=== PATIENT | female | born 1970 | race Caucasian/White ===

== ENCOUNTER 2020-02-20 10:16 | Emergency (ER) | payer MEDICARE, SELFPAY ==
[2020-02-20 10:31] VITALS: BP 120/90; PULSE 90; RESP 18; TEMP 37; O2SAT 94; BMI 43.7
--- NOTE | 2020-02-20 10:32 | ED_ITS ---
HPI - General Adult General: Chief complaint: Chest Pain Stated complaint: PAIN L BREAST Time Seen by Provider: 02/20/20 10:31 Source: patient Mode of arrival: ambulatory Limitations: no limitations History of Present Illness: HPI narrative: Patient comes in today for complaints of chest discomfort on the left side. Patient states that last night she had sharp pain that came and went through from the left side of her chest into her back. Patient does have a history of a thoracic spine injury from several years ago that occasionally causes some pain for her. Patient did not think more of the pain until this morning when she had another onset of pain when she coughed. Patient states that when she makes a sudden movement like with coughing or turning a certain way she has pain. Patient appears well. Patient does have a history of cardiac arrhythmia. Patient takes sotalol, Xarelto, and isosorbide. Associated symptoms: Reports chest pain Review of Systems General: Reports: 10 or more systems reviewed and unremarkable except in HPI and below Card: Reports: chest pain [facility] ED PFSH: Social History Smoking and tobacco status: never smoked Physical Exam Const: COMMON NORMALS: no acute distress and patient oriented x3 GENERAL APPEARANCE: cooperative HENMT: COMMON NORMALS: normocephalic and Normal external nose present HEAD & SCALP: normal to inspection and normocephalic NOSE: Normal external nose present MOUTH: Normal oral and palatal mucosa present Eye: GENERAL EYE: appearance normal, both eyes and all related structures Neck/C-Spine: COMMON NORMALS: full ROM Lymph: LYMPHATIC: no lymphadenopathy noted Chest: COMMONS NORMALS: normal inspection of the chest CHEST: Yes tenderness (Left anterior chest tenderness) Resp: COMMON NORMALS: normal respiratory effort EFFORT & INSPECTION: Yes able to speak in complete sentences Cardio: COMMON NORMALS: regular rate and regular rhythm RATE: regular rate RHYTHM: regular rhythm GI: COMMON NORMALS: non-tender : COMMON NORMALS: Yes no CVA tenderness BLADDER/KIDNEY EXAM: Yes no CVA tenderness Back/Pelvis: COMMON NORMALS: no CVA tenderness and thoracic and lumbar spine normal to inspection Extremity: COMMON NORMALS: normal to inspection Neuro: COMMON NORMALS: patient oriented x3 and moves all extremities Psych: COMMON NORMALS: mental status grossly normal and cooperative Skin: COMMON NORMALS: no rashes or lesions noted GENERAL SKIN EXAM: no r ashes or lesions noted Course Vital Signs: Vital signs: Vital Signs Temperature 98.6 F 02/20/20 10:31 Pulse Rate 90 02/20/20 10:31 Respiratory Rate 18 02/20/20 10:31 Blood Pressure 120/90 02/20/20 10:31 Pulse Oximetry 94 02/20/20 10:31 MDM - General Adult MDM Narrative: Medical decision making narrative: Patient comes in today with complaints of left rib pain. Patient states that she had pain last night and then today. Patient states that she has been coughing more frequently both 2. On exam patient has chest wall tenderness on palpation to the left side. Respirations are even lungs are decreased in the left lower lung. Differential diagnosis includes but not limited to ACS, pneumonia, costochondritis, pleurisy. Laboratory values noted a negative troponin, white count 10,000, blood glucose at 192. Chest x-ray noted some atelectasis in the left lower lung field. Believe the patient probably developed some costochondritis and has not been deep breathing which is because the atelectasis. We will cover for infection with antibiotic due to concern for early pneumonia. No significant fevers noted though at this time. However patient does have some cerebral palsy that may predispose her for pneumonia development. Patient was given dexamethasone and Rocephin in the emergency department to help with inflammation and to treat for a mild developing pneumonia. Patient will be continued on azithromycin for 3 days. Reviewed this with patient and her mother who reported understanding of care plan and need for follow-up or return. Lab Data: Labs: Lab Results 02/20/20 02/20/20 02/20/20 Range/Units 10:51 10:51 10:51 WBC 10.5 H (4.0-10.0) 10^3/ uL RBC 4.36 (4.1-5.3) 10^6/u L Hgb 13.4 (11.5-15.3) g/dL Hct 40.8 (37.0-47.0) % MCV 93.6 (81-99) fL MCH 30.7 (28.0-34.0) pg MCHC 32.8 (30.0-36.0) g/dL RDW 12.3 (12.1-15.1) % Plt Count 266 (130-400) 10^3/c mm MPV 10.5 H (7.4-10.4) fL Neut % (Auto) 74.6 % Lymph % (Auto) 16.1 % Woods % (Auto) 6.7 % Eos % (Auto) 1.8 % Baso % (Auto) 0.4 % Neut # (Auto) 7.8 H (1.8-7.7) 10^3/u L Lymph # (Auto) 1.7 (0.8-4.8) 10^3/u L Woods # (Auto) 0.7 (0.2-0.9) 10^3/u L Eos # (Auto) 0.2 (0.0-0.8) 10^3/u L Baso # (Auto) 0.0 (0.0-0.1) 10^3/u L Nucleated RBC % (a uto) 0 % Nucleated RBCs # 0.0 /100WBC Sodium 138 (136-145) mmol/L Potassium 4.2 (3.5-5.1) mmol/L Chloride 107 (98-107) mmol/L Carbon Dioxide 19 L (22-29) mmol/L Anion Gap 16.2 (5-19) BUN 18 (6-20) mg/dL Creatinine 0.6 (0.5-0.9) mg/dL GFR Calculation 105.0 (90-130) mL/min Glucose 192 H (65-115) mg/dL Calculated Osmolal ity 288 (285-295) mOsm/k g Calcium 9.5 (8.5-10.5) mg/dL Total Bilirubin 0.2 (0.15-1.2) mg/dL AST 11 (0-32) U/L ALT 16 (0-33) U/L Alkaline Phosphata se 63 (35-105) IU/L Troponin T Gen 5 n g/L 6 (0-10) ng/mL Total Protein 6.9 (6.6-8.7) g/dL Albumin 4.5 (3.5-5.2) g/dL Globulin 2.4 (1.3-4.6) g/dL Urine Color (Yellow) Urine Appearance (CLEAR) Urine pH (5-7) Ur Specific Gravit y (1.005-1.030) Urine Protein (Negative) Urine Glucose (UA) (Normal) Urine Ketones (Negative) Urine Blood (Negative) Urine Nitrate (Negative) Urine Bilirubin (NEGATIVE) Urine Urobilinogen (Negative) mg/dL Ur Leukocyte Sara ase (Negative) Urine RBC (0-2) /hpf Urine WBC (0-5) /hpf Ur Squamous Epith Cells (0-5) Ur Renal Epithelia l Cell /hpf 02/20/20 Range/Units 10:58 WBC (4.0-10.0) 10^3/ uL RBC (4.1-5.3) 10^6/u L Hgb (11.5-15.3) g/dL Hct (37.0-47.0) % MCV (81-99) fL MCH (28.0-34.0) pg MCHC (30.0-36.0) g/dL RDW (12.1-15.1) % Plt Count (130-400) 10^3/c mm MPV (7.4-10.4) fL Neut % (Auto) % Lymph % (Auto) % Woods % (Auto) % Eos % (Auto) % Baso % (Auto) % Neut # (Auto) (1.8-7.7) 10^3/u L Lymph # (Auto) (0.8-4.8) 10^3/u L Woods # (Auto) (0.2-0.9) 10^3/u L Eos # (Auto) (0.0-0.8) 10^3/u L Baso # (Auto) (0.0-0.1) 10^3/u L Nucleated RBC % (a uto) % Nucleated RBCs # /100WBC Sodium (136-145) mmol/L Potassium (3.5-5.1) mmol/L Chloride (98-107) mmol/L Carbon Dioxide (22-29) mmol/L Anion Gap (5-19) BUN (6-20) mg/dL Creatinine (0.5-0.9) mg/dL GFR Calculation (90-130) mL/min Glucose (65-115) mg/dL Calculated Osmolal ity (285-295) mOsm/k g Calcium (8.5-10.5) mg/dL Total Bilirubin (0.15-1.2) mg/dL AST (0-32) U/L ALT (0-33) U/L Alkaline Phosphata se (35-105) IU/L Troponin T Gen 5 n g/L (0-10) ng/mL Total Protein (6.6-8.7) g/dL Albumin (3.5-5.2) g/dL Globulin (1.3-4.6) g/dL Urine Color Yellow (Yellow) Urine Appearance Sl hazy (CLEAR) Urine pH 5 (5-7) Ur Specific Gravit y 1.020 (1.005-1.030) Urine Protein Neg (Negative) Urine Glucose (UA) 2+ (Normal) Urine Ketones Negative (Negative) Urine Blood Neg (Negative) Urine Nitrate Negative (Negative) Urine Bilirubin Neg (NEGATIVE) Urine Urobilinogen Norm (Negative) mg/dL Ur Leukocyte Sara ase Trace H (Negative) Urine RBC None (0-2) /hpf Urine WBC 5-10 H (0-5) /hpf Ur Squamous Epith Cells 0-4 H (0-5) Ur Renal Epithelia l Cell 1 /hpf EKG Data^: EKG 1: Attestation: I personally reviewed and interpreted this EKG as follows: (1041, sinus rhythm with regular rate at 93 bpm, no ST elevation, no ectopy, artifact present.) Computer generated interpretation: Chest X-Ray 02/20/20 10:40 IMPRESSION: Hypoaerated lungs Low-grade subsegmental atelectasis left lung base. Discharge Plan Discharge Patient Disposition: Home, Self-Care Clinical Impression: Atypical chest pain, Atelectasis Condition: Stable Prescriptions: New Mucinex 600 mg tablet extended release 12hr 600 mg PO BID Qty: 20 RF: 0 azithromycin 500 mg tablet 500 mg PO DAILY 3 Days Qty: 3 RF: 0 Celebrex 200 mg capsule 200 mg PO BID Qty: 10 RF: 0 Held Celebrex 100 mg PO BID RF: 0 Hold Instructions: Resume on 02/26/20. No Action sotalol 80 mg tablet 80 mg PO BID Qty: 180 RF: 3 Xarelto 20 mg tablet 20 mg PO DAILY Qty: 90 RF: 3 isosorbide mononitrate 10 mg tablet 10 mg PO DAILY Qty: 90 RF: 3 metformin 500 mg tablet 500 mg PO BID RF: 0 Zyrtec 10 mg Tablet 10 mg PO DAILY RF: 0 Lipitor 10 mg Tablet 10 mg PO QPM RF: 0 Celexa 10 mg Tablet 10 mg PO DAILY RF: 0 levothyroxine 75 mcg Tablet 75 mcg PO DAILY RF: 0 Xanax 0.5 mg Tablet 0.5 mg PO BEDTIME RF: 0 Nitrostat 0.4 mg Tablet, Sublingual 0.4 mg SUBLINGUAL Q5M PRN (Reason: Chest Pain) RF: 0 colestipol 1 gram tablet 1 g PO BID PRN (Reason: Diarrhea) RF: 0 medroxyprogesterone 150 mg/mL suspension See Rx Instructions .ROUTE .COMPLEX RF: 0 Cinnamon 500 mg Capsule 500 mg PO DAILY RF: 0 Calcium 600 + D(3) 600 mg calcium- 200 unit Capsule 1 cap PO DAILY RF: 0 Januvia 100 mg Tablet 100 mg PO DAILY RF: 0 Discharge Orders: Discharge Order (Routine); Ordered 02/20/20 Ordered By: Kaleb Wiseman Referrals: Roberta Stanton FNP [Family Provider] - Discharge Diet: Usual diet Discharge Activity: Increase activity as tolerated Patient Instructions: Community-acquired Pneumonia (ED) Activity Restrictions/Additional Instructions: Drink plenty of fluids. Take medications as directed. Follow-up with primary care in 1 week. Return to the ER for high fever or worsening shortness of breath. Coding Level of Care Code ED Composing Room Machinist Apprentice for Whitney Fwashutosh Exam Comprehensive
--- NOTE | 2020-02-20 10:40 | XR_ITS ---
WS: [id number] XR chest 1V portable [id number] REASON FOR EXAM: CP FINDINGS: The lung vigil are hypoaerated. In the left lower lung there is subsegmental atelectasis seen. The heart is not enlarged. The hilum and apices are normal. No osseous abnormalities. XR/XR chest 1V portable [id number] IMPRESSION: Hypoaerated lungs Low-grade subsegmental atelectasis left lung base.
--- NOTE | 2020-02-20 10:40 | ECG_ITS ---
Measurements Intervals [place] Rate: 93 P: 44 [place]: 126 QRS: 15 QRSD: 104 T: 29 QT: 366 QTc: 456 SINUS RHYTHM PROBABLE INFERIOR MYOCARDIAL INFARCTION , OF INDETERMINATE AGE [35 ms Q WAVE IN II/aVF] Compared to ECG 11/04/2016 22:53:09 Atrial fibrillation no longer present Aberrant conduction of supraventricular beat(s) no longer present Ventricular premature complex(es) no longer present Intraventricular conduction delay no longer present Myocardial infarct finding still present Electronically Signed On 02-20-2020 11:14:28 CDT by Yfn Sanchez M.D. [id number]
[2020-02-20 10:56] LABS: Basophils % 0.4 %; Eosinophils # 0.2 10^3/uL (0.0-0.8); Eosinophils % 1.8 %; Hematocrit 40.8 % (37.0-47.0); Hemoglobin 13.4 g/dL (11.5-15.3); Lymphocytes # 1.7 10^3/uL (0.8-4.8); Lymphocytes % 16.1 %; Mean Corpuscular HGB Conc 32.8 g/dL (30.0-36.0); Mean Corpuscular Hemoglobin 30.7 pg (28.0-34.0); Mean Corpuscular Volume 93.6 fL (81-99); Mean Platelet Volume 10.5 fL (7.4-10.4); Monocytes # 0.7 10^3/uL (0.2-0.9); Monocytes % 6.7 %; Neutrophils # 7.8 10^3/uL (1.8-7.7); Neutrophils % 74.6 %; Nucleated Red Blood Cells % 0 %; Platelet Count 266 10^3/cmm (130-400); Red Blood Count 4.36 10^6/uL (4.1-5.3); Red Cell Distribution Width 12.3 % (12.1-15.1); White Blood Count 10.5 10^3/uL (4.0-10.0)
[2020-02-20 11:11] LABS: Alanine Aminotransferase 16 U/L (0-33); Albumin Level 4.5 g/dL (3.5-5.2); Alkaline Phosphatase 63 IU/L (35-105); Anion Gap 16.2 (5-19); Aspartate Amino Transferase 11 U/L (0-32); Blood Urea Nitrogen 18 mg/dL (6-20); Calcium 9.5 mg/dL (8.5-10.5); Carbon Dioxide 19 mmol/L (22-29); Chloride 107 mmol/L (98-107); Globulin 2.4 g/dL (1.3-4.6); Glucose 192 mg/dL (65-115); Osmolality Calculated 288 mOsm/kg (285-295); Potassium 4.2 mmol/L (3.5-5.1); Sodium 138 mmol/L (136-145); Total Bilirubin 0.2 mg/dL (0.15-1.2); Total Protein 6.9 g/dL (6.6-8.7)
[2020-02-20 11:14] LABS: Troponin T (5th) Once 6 ng/mL (0-10)
[2020-02-20 11:26] LABS: Add Urine Microscopic? YES; Bilirubin Urine Neg (NEGATIVE); Blood Urine Neg (Negative); Glucose Urine UA 2+ (Normal); Ketones Urine Negative (Negative); Leukocyte Esterase Urine Trace (Negative); Nitrate Urine Negative (Negative); Protein Urine Neg (Negative); Urine Appearance SL Hazy (CLEAR); Urine Color Yellow (Yellow); Urobilinogen Urine Norm (Negative); pH Urine 5 (5-7)
[2020-02-20 11:28] LABS: Add Urine Culture? No; Squamous Epithelial Cell Urine 0-4 (0-5)
[2020-02-20 11:41] LABS: Bacteria Urine 1+
[2020-02-20] MEDS: cefTRIAXone 1,000 mg SDV 1000 MG IM (11:45)
[2020-02-20] MEDS: dexamethasone 10 mg/mL INJ IM (11:45)
[2020-02-20] MEDS: lidocaine 1% INJ 20 mL INJECTION (11:46)
[2020-02-20 12:13] VITALS: BP 155/88; PULSE 92; RESP 18; O2SAT 96
== END 2020-02-20 12:10 | disposition home or self-care (01) ==
PROVIDERS: Emergency Provider Nurse Practitioner Family; Family Provider Nurse Practitioner Family
DX: R07.89 Other chest pain (principal); A15.0 Tuberculosis of lung; Z79.84 Long term (current) use of oral hypoglycemic drugs
CPT/HCPCS: 12345; 36415; 71045; 80053; 81001; 84484; 85025; 93005; 96372; 99283; J0696; J1100; J2001

== ENCOUNTER 2020-04-15 11:11 | Outpatient (CLI) | payer MEDICARE, SELFPAY ==
--- NOTE | 2020-04-15 11:16 | XR_ITS ---
WS: [id number] THORACIC SPINE TECHNIQUE: AP and lateral views are performed. HISTORY: DORSALGIA, UNSPECIFIED, BACK PAIN COMPARISON: None available. Mild increase in thoracic kyphosis. Fusion hardware at the thoracolumbar junction. No fractures or di splacement. Mild disc space narrowing and endplate osteophytes. Pedicles are all identified. No fract ures. XR/XR thoracic spine 3V* [id number] IMPRESSION: 1. Moderate spondylosis thoracic spine. 2. Fusion hardware thoracolumbar junction. No complications evident radiograph ically.
--- NOTE | 2020-04-15 11:16 | XR_ITS ---
WS: [id number] CERVICAL SPINE 3 VIEWS HISTORY: CERVICALGIA COMPARISON: None available. Normal cervical alignment with no fracture or destructive process. Small vertebral body osteophytes. No fractures. Disc spaces and vertebral body heights are well-maintained. Soft tissues are normal. XR/XR cervical spine 3V* [id number] IMPRESSION: Mild cervical spondylosis with no fracture.
== END 2020-04-15 11:12 | disposition home or self-care (01) ==
PROVIDERS: Family Provider Nurse Practitioner Family; PCP Nurse Practitioner Family; Visit Provider Nurse Practitioner Family
DX: M54.2 Cervicalgia (principal); M54.9 Dorsalgia, unspecified; M47.814 Spondylosis without myelopathy or radiculopathy, thoracic region; M47.812 Spondylosis without myelopathy or radiculopathy, cervical region
CPT/HCPCS: 72040; 72072

== ENCOUNTER 2020-07-06 08:18 | Outpatient (CLI) | payer MEDICARE, SELFPAY ==
--- NOTE | 2020-07-06 08:30 | MM_ITS ---
WS: [id number] BILATERAL SCREENING DIGITAL MAMMOGRAM WITH CAD HISTORY: breast cancer screening COMPARISON: 04/15/2019 and 03/23/2018 Bilateral CC and MLO views submitted. Computer aided detection analyzed. Breast composition: There are scattered areas of fibroglandular density. No suspicious masses, microc alcifications or architectural distortion. MM/[id number] IMPRESSION: BI-RADS: 1-Negative FOLLOW UP: 1 Year Follow-up
== END 2020-07-06 08:19 | disposition home or self-care (01) ==
PROVIDERS: PCP Nurse Practitioner Family; Visit Provider Nurse Practitioner Women's Health
DX: Z12.31 Encounter for screening mammogram for malignant neoplasm of breast (principal)
CPT/HCPCS: 77067

== ENCOUNTER → 2021-05-20 13:25 | Outpatient (BNVA) | payer MEDICARE, SELFPAY | PROVIDERS: PCP Nurse Practitioner Family; Visit Provider Nurse Practitioner Women's Health | DX: Z12.4 Encounter for screening for malignant neoplasm of cervix (principal) | CPT/HCPCS: 88175 ==

== ENCOUNTER 2021-07-29 08:22 | Outpatient (CLI) | payer MEDICARE, SELFPAY ==
--- NOTE | 2021-07-29 08:30 | MM_ITS ---
WS: [id number] BILATERAL DIGITAL SCREENING MAMMOGRAPHY WITH CAD CLINICAL INFORMATION: Z12.39 - Encounter for other screening for malignant neop... HISTORY: Screening mammogram. No current complaints. COMPARISON: July 06, 2020 TECHNIQUE: Bilateral CC and MLO views. FINDINGS: Evidence of interval bilateral breast reduction Scattered fibroglandular densities bilaterally. No suspicious focal mass, asymmetry, calcifications, or architectural distortion. No evidence of malignancy. MM/[id number] IMPRESSION: BI-RADS: 1-Negative FOLLOW UP: 1 Year Follow-up Recommend return to annual screening mammography.
== END 2021-07-29 08:23 | disposition home or self-care (01) ==
LOC: RADSHAW 08:26
PROVIDERS: PCP Nurse Practitioner Family; Visit Provider Nurse Practitioner Women's Health
DX: Z12.39 Encounter for other screening for malignant neoplasm of breast (principal)
CPT/HCPCS: 77067

== ENCOUNTER 2022-05-23 09:29 | Emergency (ER) | payer MEDICARE, SELFPAY ==
[2022-05-23 09:34] VITALS: BP 157/100; PULSE 94; RESP 16; TEMP 36.9; O2SAT 94; BMI 37.8
--- NOTE | 2022-05-23 09:35 | ECG_ITS ---
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 Measurements Intervals [place] Rate: 91 P: 51 [place]: 130 QRS: 5 QRSD: 93 T: 40 QT: 383 QTc: 472 Interpretive Statements SINUS RHYTHM POSSIBLE LEFT ATRIAL ENLARGEMENT [-0.1mV P-WAVE IN V1/V2] INCOMPLETE RIGHT BUNDLE BRANCH BLOCK [90+ ms QRS DURATION, TERMINAL R IN V1/V2, 40+ ms S IN I/aVL/V4/V5/V6] Compared to ECG 02/20/2020 10:41:55 Incomplete right bundle-branch block now present Myocardial infarct finding no longer present Electronically Signed On 05-23-2022 19:00:10 CDT by Leeanna Weston M.D. [id number] f
--- NOTE | 2022-05-23 09:57 | XRR_ITS ---
PROCEDURE INFORMATION: Exam: XR Chest Exam date and time: 05/23/2022 10:17 AM Age: 52 years old Clinical indication: Sternal or substernal pain; Additional info: Chest pain TECHNIQUE: Imaging protocol: Radiologic exam of the chest. Views: 1 view. COMPARISON: CR Chest 2 views* [id number] 05/17/2016 11:53 AM FINDINGS: Lungs: Unremarkable. No consolidation. Pleural spaces: Unremarkable. No pleural effusion. No pneumothorax. Heart/Mediastinum: Unremarkable. No cardiomegaly. Bones/joints: Unremarkable. XR/XR chest 1V portable [id number] IMPRESSION: No acute findings.
[2022-05-23 10:04] LABS: Basophils % 0.5 %; Eosinophils # 0.2 10^3/uL (0.0-0.8); Eosinophils % 2.7 %; Hematocrit 41.8 % (37.0-47.0); Hemoglobin 14.1 g/dL (11.5-15.3); Lymphocytes # 2.6 10^3/uL (0.8-4.8); Lymphocytes % 34.8 %; Mean Corpuscular HGB Conc 33.7 g/dL (30.0-36.0); Mean Corpuscular Hemoglobin 31.5 pg (28.0-34.0); Mean Corpuscular Volume 93.3 fl (81-99); Mean Platelet Volume 10.9 fL (7.4-10.4); Monocytes # 0.5 10^3/uL (0.2-0.9); Monocytes % 6.7 %; Neutrophils # 4.12 10^3/uL (1.8-7.7); Nucleated Red Blood Cells % 0 %; Platelet Count 236 10^3/cmm (130-400); Red Blood Count 4.48 10^6/uL (4.1-5.3); White Blood Count 7.5 10^3/uL (4.0-10.0)
[2022-05-23 10:15] LABS: Troponin(5th) Baseline 8 ng/L (0-10)
[2022-05-23 10:18] LABS: Alanine Aminotransferase 40 U/L (0-33); Alkaline Phosphatase 80 U/L (35-105); Aspartate Amino Transferase 33 U/L (0-32); Blood Urea Nitrogen 12 mg/dL (6-20); Calcium 9.1 mg/dL (8.5-10.5); Carbon Dioxide 24 mmol/L (22-29); Chloride 105 mmol/L (98-107); Creatinine Clr Calc Pharmacy 147.6945; Globulin 2.3 g/dL (1.3-4.6); Glomerular Filtration Rate 128.6 mL/min (90-130); Glucose 157 mg/dL (65-115); Osmolality Calculated 297 mOsm/kg (285-295); Sodium 142 mmol/L (136-145); Total Bilirubin 0.4 mg/dL (0.15-1.2); Total Protein 6.3 g/dL (6.6-8.7)
--- NOTE | 2022-05-23 10:32 | ED_ITS ---
HPI - Chest Pain General: Chief Complaint: Chest Pain Stated Complaint: CHEST PAIN Time Seen by Provider: 05/23/22 09:44 Source: patient Mode of arrival: ambulatory History of Present Illness: 52-year-old female presents emergency room complaining of chest discomfort. Patient has some cerebral palsy and developmental delay since little bit difficult to get history from her family at the bedside assisting. She evidently intermittently had chest pain for nearly 10 years she has known history of atrial fibrillation and is on anticoagulation with add rate control. This morning she shortly after waking up she began having chest discomfort if she went up the stairs it did not seem to particularly make it worse there is no radiation of pain. She is was given aspirin and nitro in route by EMS reports her pain is completely resolved now. She has seen Dr. Foster in the pastFor her atrial fibrillation. In April 2016 patient had a Lexiscan sestamibi stress test that was read as having a reversible area suggestive of ischemia in the distribution of the LAD 2 weeks later she underwent a angiogram which ultimately was found to be normal. She has not had really any retesting since then. Echocardiogram in 2017 was normal. Patient is diabetic hypothyroid and is on statin and scheduled nitrates. MD complaint: chest pain Onset (ago): minute(s) Timing of current episode: episodic Onset: during rest Pain location: left chest Pain radiation: none Severity: moderate Quality: sharp Relieving factors: nitroglycerin Exacerbating factors: nothing Associated symptoms: Deny abdominal pain, diaphoresis, dyspnea, fever(s), leg edema, nausea, palpitations, sense of impending doom, syncope or vomiting Treatment prior to arrival: aspirin and nitroglycerin Review of Systems Const: Denies: fever(s), chills or diaphoresis ENMT: Denies: throat pain, ear or mastoid pain, nasal discharge or nasal congestion Card: Reports: chest pain; Denies: palpitations, irregular heart rhythm, edema or syncope Resp: Denies: dyspnea GI: Denies: abdominal pain, nausea or vomiting : Denies: flank pain, difficulty voiding, dysuria, urinary frequency or urinary urgency Musc: Denies: neck pain or back pain Skin/Breast: Denies: rash or pruritus PFS ED PFSH: Medical History Abnormal uterine bleeding (AUB) Atrial fibrillation Cerebral palsy Depression Diabetes Hypertension No pertinent past medical history neghx:thyroid,dvt/pe PCP: 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 Hx of appendectomy Hx of cholecystectomy (~2007) Family History Brother Hypertension Family/Other Diabetes Paternal uncle Mother Stroke Grandfather Heart disease Maternal grandfather Grandmother Breast cancer Maternal great great grandmother Denies family history of Colon cancer Ovarian cancer Hyperlipidemia Family history of thyroid problem Uterine cancer Social History Smoking and tobacco status: never smoked Alcohol intake: current Alcohol intake frequency: holidays/special occasions only Additional social history: - Tobacco use: Denies Alcohol use: Social Drug use: Denies Physical Exam Const: COMMON NORMALS: no acute distress GENERAL APPEARANCE: cooperative and comfortable ORIENTATION/CONSCIOUSNESS: Yes awake, Yes oriented to person, Yes oriented to place and Yes oriented to time HENMT: COMMON NORMALS: normocephalic, atraumatic and hearing grossly normal bilaterally HEAD & SCALP: normocephalic and atraumatic Resp: COMMON NORMALS: normal respiratory effort, No retractions, No use of accessory muscles and clear to auscultation bilaterally AUSCULTATION: clear to auscultation bilaterally Cardio: COMMON NORMALS: regular rate, regular rhythm and No murmurs present (Cardio) RATE: regular rate RHYTHM: regular rhythm GI: COMMON NORMALS: Soft to palpation and No hepatosplenomegaly present AUSCULTATION: Yes normoactive bowel sounds PALPATION: Yes Soft to palpation, No Tenderness to palpation present (GI), No Guarding due to palpation present (GI) and Yes No hepatosplenomegaly present Extremity: COMMON NORMALS: normal to inspection, capillary refill normal, no clubbing, cyanosis or edema, no calf tenderness and no pedal edema Neuro: SENSORIUM/ORIENTATION: Yes oriented to person, Yes oriented to place and Yes oriented to time Skin: COMMON NORMALS: no rashes or lesions noted GENERAL SKIN EXAM: no rashes or lesions noted Course Vital Signs: Vital signs: Vital Signs Temperature 98.4 F 05/23/22 09:34 Pulse Rate 79 05/23/22 14:34 Respiratory Rate 16 05/23/22 14:34 Blood Pressure 141/99 05/23/22 14:34 Pulse Oximetry 98 05/23/22 14:34 Oxygen Delivery Me thod 05/23/22 11:30 MDM - Chest Pain Medical Decision Making Labs imaging EKG unremarkable. Patient is a angiogram was normal previously. She is currently on Xarelto. We will go ahead and discharge patient home going to start her on isosorbide mononitrate give her sublingual nitro to use as needed have her follow-up with cardiology as soon as she is able. Return if she has any further chest pain. Medical Records I reviewed the patient's medical records. Lab Data I reviewed the patient's lab results. : 05/23/22 09:50 05/23/22 09:50 Radiology Impressions Chest X-Ray 05/23/22 09:57 IMPRESSION: No acute findings. Laboratory Results WBC 7.5 10^3/uL (4.0-10.0) 05/23/22 09:50 RBC 4.48 10^6/uL (4.1-5.3) 05/23/22 09:50 Hgb 14.1 g/dL (11.5-15.3) 05/23/22 09:50 Hct 41.8 % (37.0-47.0) 05/23/22 09:50 MCV 93.3 fl (81-99) 05/23/22 09:50 MCH 31.5 pg (28.0-34.0) 05/23/22 09:50 MCHC 33.7 g/dL (30.0-36.0) 05/23/22 09:50 RDW 12.0 % (12.1-15.1) L 05/23/22 09:50 Plt Count 236 10^3/cmm (130-400) 05/23/22 09:50 MPV 10.9 fL (7.4-10.4) H 05/23/22 09:50 Neut % (Auto) 55.0 % 05/23/22 09:50 Lymph % (Auto) 34.8 % 05/23/22 09:50 Craig % (Auto) 6.7 % 05/23/22 09:50 Eos % (Auto) 2.7 % 05/23/22 09:50 Baso % (Auto) 0.5 % 05/23/22 09:50 Neut # (Auto) 4.12 10^3/uL (1.8-7.7) 05/23/22 09:50 Lymph # (Auto) 2.6 10^3/uL (0.8-4.8) 05/23/22 09:50 Craig # (Auto) 0.5 10^3/uL (0.2-0.9) 05/23/22 09:50 Eos # (Auto) 0.2 10^3/uL (0.0-0.8) 05/23/22 09:50 Baso # (Auto) 0.0 10^3/uL (0.0-0.1) 05/23/22 09:50 Nucleated RBC % (auto) 0 % 05/23/22 09:50 Nucleated RBCs # 0.0 /100WBC 05/23/22 09:50 Sodium 142 mmol/L (136-145) 05/23/22 09:50 Potassium 4.0 mmol/L (3.5-5.1) 05/23/22 09:50 Chloride 105 mmol/L (98-107) 05/23/22 09:50 Carbon Dioxide 24 mmol/L (22-29) 05/23/22 09:50 Anion Gap 17.0 (5-19) 05/23/22 09:50 BUN 12 mg/dL (6-20) 05/23/22 09:50 Creatinine 0.5 mg/dL (0.5-0.9) 05/23/22 09:50 GFR Calculation 128.6 mL/min (90-130) 05/23/22 09:50 Glucose 157 mg/dL (65-115) H 05/23/22 09:50 Calculated Osmolality 297 mOsm/kg (285-295) H 05/23/22 09:50 Calcium 9.1 mg/dL (8.5-10.5) 05/23/22 09:50 Total Bilirubin 0.4 mg/dL (0.15-1.2) 05/23/22 09:50 AST 33 U/L (0-32) H 05/23/22 09:50 ALT 40 U/L (0-33) H 05/23/22 09:50 Alkaline Phosphatase 80 U/L (35-105) 05/23/22 09:50 Troponin T Baseline 8 ng/L (0-10) 05/23/22 09:50 Troponin T 120 Minute 6.88 ng/L (0-10) 05/23/22 11:59 Delta Troponin T -1.12 ABS# (0-10) L 05/23/22 11:59 Total Protein 6.3 g/dL (6.6-8.7) L 05/23/22 09:50 Albumin 4.0 g/dL (3.5-5.2) 05/23/22 09:50 Globulin 2.3 g/dL (1.3-4.6) 05/23/22 09:50 Discharge Plan Discharge Patient Disposition: Home Clinical Impression: Atypical chest pain, Hypertension, Diabetes Condition: Stable Prescriptions: New isosorbide mononitrate 30 mg tablet extended release 24 hr 30 mg PO DAILY Qty: 30 0RF nitroglycerin 0.4 mg tablet, sublingual 0.4 mg sublingual Q5M PRN (Reason: chest pain) Qty: 30 0RF Rx Instructions: do not exceed 3 doses per episode Discontinued isosorbide mononitrate 10 mg tablet 10 mg PO BEDTIME No Action metformin 500 mg tablet 500 mg PO BID cetirizine [Zyrtec] 10 mg Tablet 10 mg PO QAM citalopram [Celexa] 10 mg Tablet 10 mg PO QAM levothyroxine 75 mcg Tablet 75 mcg PO QAM alprazolam [Xanax] 0.5 mg Tablet 0.5 mg PO BEDTIME colestipol 1 gram tablet 1 g PO BID PRN (Reason: Diarrhea) cinnamon bark [Cinnamon] 500 mg Capsule 500 mg PO QAM Calcium 600 + D(3) 600 mg calcium- 200 unit Capsule 1 cap PO QAM Januvia 100 mg Tablet 100 mg PO BEDTIME Nitrostat 0.4 mg Tablet, Sublingual 0.4 mg SUBLINGUAL Q5M PRN (Reason: Chest Pain) Rx Instructions: do not exceed 3 doses per episode Celebrex 100 mg Capsule 100 - 200 mg PO BID PRN (Reason: Pain) sotalol 80 mg tablet 80 mg PO BID Xarelto 20 mg tablet 20 mg PO BEDTIME Discharge Orders: Discharge ED (Routine); Ordered 05/23/22 Ordered By: Anatoly Guerrero Referrals: Roberta Stanton FNP [Primary Care Provider] - Discharge Diet: Usual diet Discharge Activity: Limit activity as instructed Patient Instructions: Opioid Safety Activity Restrictions/Additional Instructions: Avoid strenuous activities. Stop isosorbide mononitrate 10 mg daily and instead take the mononitrate extended release 30 mg daily. shelter case manager will make arrangements for a Lexiscan sestamibi stress test. Avoid strenuous activities and return to the emergency room if you have any further chest pain. Coding Level of Care Code ED Adult Basic Education Teacher for Whitney Corona
--- NOTE | 2022-05-23 10:37 | PC.PHAR ---
pts family verified pts medications-pts family states the pt takes celebrex prn and is unsure if its 100 or 200mg bid prn-[facility] is closed on no way to verify-pts family states the pt is still taking isosorbide mono 10mg ext med history shows last filled 09/01/2021 90d/s [facility] closed today so no way to verify last filled-pts family states the pt takes xarelto 20mg hs ext med history doesnt show when last filled [facility] closed no way to verify when last filled-ext med history shows januvia 100mg daily last filled 01/10/22 90d/s-pts family states pt takes sotalol 80mg bid states she had a build up ext med history doesnt show when last filled and [facility] is closed today so no way to verify last filled-notes are made in the pharmacy comments
[2022-05-23 11:30] VITALS: BP 145/104; PULSE 76; RESP 16; O2SAT 95
--- NOTE | 2022-05-23 11:49 | ECG_ITS ---
[facility] Test Date: 2022-05-23 Pat Name: Leyda Camacho Department: Room: Gender: Female Press Hand: : 1970 Requested By: Anatoly Alvarez Order Number: [id number] Patrick MD: Leeanna Wesotn M.D. Measurements Intervals [place] Rate: 80 P: 46 [place]: 133 QRS: 7 QRSD: 106 T: 27 QT: 417 QTc: 483 Interpretive Statements SINUS RHYTHM POSSIBLE LEFT ATRIAL ENLARGEMENT [-0.1mV P-WAVE IN V1/V2] INCOMPLETE RIGHT BUNDLE BRANCH BLOCK PROBABLE INFERIOR MYOCARDIAL INFARCTION , PROBABLY OLD [35 ms Q WAVE IN II/aVF] Compared to ECG 05/23/2022 09:35:59 Myocardial infarct finding now present Electronically Signed On 05-23-2022 19:05:36 CDT by Leeanna Weston M.D. [email or web address]
[2022-05-23 12:34] LABS: Troponin 5 2HR 6.88 ng/L (0-10)
[2022-05-23 13:04] LABS: Troponin 5 2HR Delta -1.12 ABS# (0-10)
[2022-05-23 14:34] VITALS: BP 141/99; PULSE 79; RESP 16; O2SAT 98
--- NOTE | 2022-06-07 11:29 | DCPLANNER ---
Addendum entered by Carmen Saucedo 07/06/22 12:44: Patient had a follow up appointment scheduled for 06.16.22 patient did attend appointment. Addendum entered by Carmen Saucedo 06/08/22 15:21: Patient has a follow up appointment scheduled for Tuesday, June 14, 2022 at 10:[facility] for a 48 hour halter monitor Original Note: manager export had message to schedule an outpatient 48 hour halter monitor for patient. manager export [facility]ed signed order to [facility], who will call patient with appointment information.
== END 2022-05-23 14:35 | disposition home or self-care (01) ==
PROVIDERS: Emergency Provider Family Medicine; PCP Nurse Practitioner Family
DX: R07.89 Other chest pain (principal); I10 Essential (primary) hypertension; E11.9 Type 2 diabetes mellitus without complications; Z79.84 Long term (current) use of oral hypoglycemic drugs; G80.9 Cerebral palsy, unspecified
CPT/HCPCS: 36415; 71045; 80053; 84484; 85025; 93005; 99285

== ENCOUNTER → 2022-06-16 11:01 | Outpatient (BNVA) | payer MEDICARE, SELFPAY | PROVIDERS: PCP Nurse Practitioner Family; Visit Provider Internal Medicine | DX: R07.9 Chest pain, unspecified (principal) | CPT/HCPCS: 93225 ==

== ENCOUNTER → 2022-07-11 12:41 | Outpatient (BNVA) | payer MEDICARE, SELFPAY | PROVIDERS: PCP Nurse Practitioner Family; Visit Provider Internal Medicine Cardiovascular Disease | DX: I48.0 Paroxysmal atrial fibrillation (principal); I10 Essential (primary) hypertension; E11.9 Type 2 diabetes mellitus without complications; Z79.4 Long term (current) use of insulin; Z79.01 Long term (current) use of anticoagulants | CPT/HCPCS: 99213; 99214 ==

== ENCOUNTER 2022-08-22 09:54 | Outpatient (CLI) | payer MEDICARE, SELFPAY ==
--- NOTE | 2022-08-22 10:16 | MM_ITS ---
WS: [id number] BILATERAL SCREENING DIGITAL TOMOSYNTHESIS MAMMOGRAM WITH CAD HISTORY: SCREENING COMPARISON: 07/29/2021, 07/06/2020 Bilateral CC and MLO views with tomosynthesis and synthetic mammography submitted. Computer aided det ection analyzed. Breast composition: There are scattered areas of fibroglandular density. No suspicious masses, microc alcifications or architectural distortion. Prior mammoplasty. MM/[place] [id number] IMPRESSION: BI-RADS: 2-Benign FOLLOW UP: 1 Year Follow-up
== END 2022-08-22 09:55 | disposition home or self-care (01) ==
LOC: RAD 09:57
PROVIDERS: PCP Nurse Practitioner Family; Visit Provider Nurse Practitioner Family
DX: Z12.31 Encounter for screening mammogram for malignant neoplasm of breast (principal)
CPT/HCPCS: 77063; 77067

== ENCOUNTER → 2023-01-16 11:24 | Outpatient (BNVA) | payer MEDICARE, SELFPAY | PROVIDERS: PCP Nurse Practitioner Family; Visit Provider Internal Medicine Cardiovascular Disease | DX: I48.0 Paroxysmal atrial fibrillation (principal); Z79.01 Long term (current) use of anticoagulants; I10 Essential (primary) hypertension; G47.33 Obstructive sleep apnea (adult) (pediatric); E11.9 Type 2 diabetes mellitus without complications; Z79.84 Long term (current) use of oral hypoglycemic drugs | CPT/HCPCS: 99214 ==

== ENCOUNTER 2023-11-09 10:41 | Outpatient (CLI) | payer MEDICARE, SELFPAY ==
--- NOTE | 2023-11-09 10:49 | MM_ITS ---
WS: [id number] BILATERAL SCREENING DIGITAL TOMOSYNTHESIS MAMMOGRAM WITH CAD HISTORY: SCREENING COMPARISON: 08/22/2022, 07/29/2021 Bilateral CC and MLO views with tomosynthesis and synthetic mammography submitted. Computer aided det ection analyzed. Breast composition: The breasts are almost entirely fatty. No suspicious masses, microcalcifications or architectural distortion. IMPRESSION: MM/[place] [id number] BI-RADS: 1-Negative FOLLOW UP: 1 Year Follow-up
== END 2023-11-09 10:42 | disposition home or self-care (01) ==
LOC: RAD 10:41
PROVIDERS: PCP Nurse Practitioner Family; Visit Provider Nurse Practitioner Family
DX: Z12.31 Encounter for screening mammogram for malignant neoplasm of breast (principal)
CPT/HCPCS: 77067

== ENCOUNTER 2025-01-03 13:47 | Outpatient (CLI) | payer MEDICARE, SELFPAY ==
--- NOTE | 2025-01-03 | MM_ITS ---
WS: [id number] BILATERAL 3D TOMOSYNTHESIS DIGITAL SCREENING MAMMOGRAPHY WITH CAD CLINICAL INFORMATION: ANNUAL SCREENING HISTORY: Screening mammogram. No current complaints. COMPARISON: 2023 TECHNIQUE: Bilateral CC and MLO views. FINDINGS: Breast reduction Scattered fibroglandular densities bilaterally. No suspicious focal mass, asymmetry, calcifications, or architectural distortion. No evidence of malignancy. MM/MM scr tomosynthesis [id number] IMPRESSION: DENSITY: There are scattered areas of fibroglandular density. BI-RADS: 2 - Benign. FOLLOW UP: 1 Year Follow-up Recommend return to annual screening mammography.
== END 2025-01-03 13:48 | disposition home or self-care (01) ==
LOC: RAD 13:51
PROVIDERS: PCP Nurse Practitioner Family; Visit Provider Nurse Practitioner Family
DX: Z12.31 Encounter for screening mammogram for malignant neoplasm of breast (principal); R92.323 Mammographic fibroglandular density, bilateral breasts
CPT/HCPCS: 77063; 77067

== ENCOUNTER → 2025-03-06 15:26 | Outpatient (BNVA) | payer MEDICARE, SELFPAY | PROVIDERS: PCP Nurse Practitioner Family; Visit Provider Internal Medicine Cardiovascular Disease | DX: R07.9 Chest pain, unspecified (principal); I48.0 Paroxysmal atrial fibrillation; Z79.01 Long term (current) use of anticoagulants; I10 Essential (primary) hypertension; G47.33 Obstructive sleep apnea (adult) (pediatric); E11.9 Type 2 diabetes mellitus without complications; Z99.89 Dependence on other enabling machines and devices; Z79.84 Long term (current) use of oral hypoglycemic drugs | CPT/HCPCS: 93005; 99214 ==

== ENCOUNTER → 2025-09-05 09:48 | Outpatient (BNVA) | payer MEDICARE, SELFPAY | PROVIDERS: PCP Nurse Practitioner Family; Visit Provider Nurse Practitioner Family | DX: I48.0 Paroxysmal atrial fibrillation (principal); Z79.01 Long term (current) use of anticoagulants; I10 Essential (primary) hypertension; G47.33 Obstructive sleep apnea (adult) (pediatric); E11.9 Type 2 diabetes mellitus without complications; Z79.84 Long term (current) use of oral hypoglycemic drugs; I20.9 Angina pectoris, unspecified | CPT/HCPCS: 93005; 99214 ==